=== PATIENT | male | born 1990 | race Caucasian/White ===

== ENCOUNTER 2018-04-20 18:59 | Emergency (ER) | payer OTHER ==
[~2018-04-20] VITALS: Ht 188 cm; Wt 109.7 kg
[2018-04-20 19:38] LABS: HEMATOCRIT 43.7 % (38.0-50.0); HEMOGLOBIN 15.2 G/DL (12.5-16.6); MCH 28.6 PG (29.0-34.0); MCHC 34.8 G/DL (30.0-36.0); MCV 82.3 FL (86-99); PLATELET COUNT 229 K/uL (156-360); RBC DIS.WIDTH-CV 12.7 % (11.8-14.6); RBC DIS.WIDTH-SD 38.2 % (39-53); RED BLOOD COUNT 5.31 M/uL (4.00-5.50)
[2018-04-20 19:49] LABS: CHLORIDE 104 mEq/L (99-109); POTASSIUM 4.3 mEq/L (3.7-5.4); SODIUM 140 mEq/L (136-147)
[2018-04-20 19:50] LABS: GLUCOSE 102 mg/dL (70-99)
[2018-04-20 19:54] LABS: GFR ESTIMATE (CALCULATED) > 59 mL/min/ (58.99-99999)
[2018-04-20 19:55] LABS: UREA NITROGEN (BUN) 15 mg/dL (9-23)
[2018-04-20 20:00] LABS: TROP-I INTERPRETATION NEGATIVE; TROPONIN-I 0.02 ng/mL (0.0-0.30)
[2018-04-20] MEDS ORDERED: MEDROL DOSEPAK4 MG PO (20:58)
[2018-04-20] MEDS ORDERED: REGLAN10 MG PO (20:58)
[2018-04-20 21:22] VITALS: BP 124/79
== END 2018-04-20 21:31 | disposition home or self-care (01) ==
LOC: EME 18:59
DX: R07.89 Other chest pain (principal); R51 Headache; B19.20 Unspecified viral hepatitis C without hepatic coma; F17.200 Nicotine dependence, unspecified, uncomplicated; Z86.79 Personal history of other diseases of the circulatory system
CPT/HCPCS: 71046; 80048; 84484; 85027; 93005; 99281; 99284; J1885